=== PATIENT | male | born 1970 | race Caucasian/White ===

== ENCOUNTER 2022-08-11 17:24 | Emergency (ER) | payer BC ==
[~2022-08-11] VITALS: Ht 180.3 cm; Wt 81.6 kg
--- NOTE | 2022-08-11 19:48 | NUR ---
Pt not in waiting room.
== END 2022-08-11 19:49 | disposition left against medical advice (07) ==
LOC: ER 17:34
DX: Z53.21 Procedure and treatment not carried out due to patient leaving prior to being seen by health care provider (principal)